=== PATIENT | female | born 1970 | race Caucasian/White ===

== ENCOUNTER 2017-11-02 10:16 | Observation (INO) | payer OTHER ==
[~2017-11-02] VITALS: Ht 167.6 cm; Wt 106.8 kg
[2017-11-02 10:18] VITALS: BP 132/69; PULSE 84; RESP 16; TEMP 99.2; O2SAT 98
[2017-11-02] MEDS ORDERED: ZYPR2.5T2 PO (10:29)
[2017-11-02] MEDS ORDERED: CYMB30CA PO (10:29)
[2017-11-02] MEDS ORDERED: PERC5TAB12 PO (10:29)
[2017-11-02] MEDS ORDERED: CLIN300C5 PO (10:29)
[2017-11-02] MEDS ORDERED: LAMO25 PO (10:29)
[2017-11-02] MEDS ORDERED: DEXAMETHASONE SOD PHOS 4 MG/ML VIAL IV PUSH ONE (11:00)
--- NOTE | 2017-11-02 11:01 | PD ---
HPI Chief Complaint: Oral / Dental Pain or Problem Time Seen by Provider: 10:30 Travel History International Travel<30 days: Yes Contact w/Intl Traveler<30days: Yes Name of Country Traveled to: [facility] Traveled to known affect area: No History of Present Illness HPI This is a 47-year-old female here with dental abscess, neck swelling, fullness in throat. Symptoms began 7 days ago. Worsening over the last 24 hours. She was evaluated in the emergency department in [place] and found to have dental abscess, started on clindamycin and was referred to her dentist. 5 days ago she was evaluated by her dentist and referred to an oral surgeon. She then came to [place] on vacation and her symptoms have worsened. She denies fever chills. The swelling in the neck and fullness in the throat have worsened over the last 24 hours. She is tolerating her secretions, but reports some difficulty swallowing. PFSH Past Medical History Diminished Hearing: No Tetanus Vaccination: Unknown ?: Not Past Surgical History Hysterectomy: Yes Other Surgery: Yes (LEFT HIP) Social History Alcohol Use: Yes (SOC) Tobacco Use: No Substance Use: No Allergies-Medications (Allergen,Severity, Reaction): Coded Allergies: Penicillins (Verified Allergy, Unknown, 11/02/17) Reported Meds & Prescriptions Reported Meds & Active Scripts Active Reported Percocet (Oxycodone-Acetaminophen) 5-325 mg Tab 1 Tab PO Q6H PRN Zyprexa (Olanzapine) 2.5 Mg Tab 2.5 Mg PO HS Cymbalta DR (Duloxetine HCl) 30 Mg Capdr 30 Mg PO DAILY Lamictal (Lamotrigine) 25 Mg Tab 75 Mg PO DAILY Clindamycin (Clindamycin HCl) 300 Mg Cap 300 Mg PO Q6H Review of Systems Except as stated in HPI: all other systems reviewed are Neg General / Constitutional: No: Fever Eyes: No: Visual changes HENT: Positive: Dental Difficulties Cardiovascular: No: Chest Pain or Discomfort Respiratory: No: Shortness of Breath Gastrointestinal: No: Abdominal Pain Genitourinary: No: Dysuria Musculoskeletal: No: Pain Skin: No Rash Physical Exam Narrative GENERAL: Alert and well-appearing 47-year-old female SKIN: Warm and dry. HEAD: Normocephalic. EYES: No injection or drainage. ENT: No swelling to the floor the mouth. Mild pharyngeal erythema right greater than left. Uvula is midline. Airways patent. Normal phonation. No drooling, stridor, trismus. NECK: Supple, trachea midline. Notable swelling, tenderness, and palpable firm mass/fluid collection to the right submandibular region. CARDIOVASCULAR: Regular rate and rhythm RESPIRATORY: Breath sounds equal bilaterally. No accessory muscle use. Data Data Last Documented VS Vital Signs Date Time Temp Pulse Resp B/P (MAP) Pulse Ox O2 Delivery O2 Flow Rate FiO2 11/02/17 10:18 99.2 84 16 132/69 (90) 98 Orders Orders Basic Metabolic Panel (Bmp) (11/02/17 10:50) Complete Blood Count With Diff (11/02/17 10:50) Ct Soft Tiss Neck W Iv Cont (11/02/17 10:50) Iv Access Insert/Monitor (11/02/17 10:50) Dexamethasone Inj (Decadron Inj) (11/02/17 11:00) Iohexol 350 Inj (Omnipaque 350 Inj) (11/02/17 11:15) Acetamin-Hydrocod 325-5 Mg ([place] 5-325 (11/02/17 11:30) Imipenem/Cilastatin Inj (Primaxin Inj) (11/02/17 12:30) Labs Laboratory Tests Test 11/02/17 11:00 White Blood Count 6.7 TH/MM3 Red Blood Count 4.25 MIL/MM3 Hemoglobin 12.0 GM/DL Hematocrit 37.2 % Mean Corpuscular Volume 87.5 FL Mean Corpuscular Hemoglobin 28.3 PG Mean Corpuscular Hemoglobin Concent 32.3 % Red Cell Distribution Width 13.1 % Platelet Count 285 TH/MM3 Mean Platelet Volume 8.0 FL Neutrophils (%) (Auto) 72.5 % Lymphocytes (%) (Auto) 17.5 % Monocytes (%) (Auto) 7.9 % Eosinophils (%) (Auto) 1.5 % Basophils (%) (Auto) 0.6 % Neutrophils # (Auto) 4.9 TH/MM3 Lymphocytes # (Auto) 1.2 TH/MM3 Monocytes # (Auto) 0.5 TH/MM3 Eosinophils # (Auto) 0.1 TH/MM3 Basophils # (Auto) 0.0 TH/MM3 CBC Comment DIFF FINAL Differential Comment Blood Urea Nitrogen 11 MG/DL Creatinine 0.75 MG/DL Random Glucose 85 MG/DL Calcium Level 8.7 MG/DL Sodium Level 139 MEQ/L Potassium Level 4.0 MEQ/L Chloride Level 107 MEQ/L Carbon Dioxide Level 26.7 MEQ/L Anion Gap 5 MEQ/L Estimat Glomerular Filtration Rate 83 ML/MIN MDM Medical Decision Making Medical Screen Exam Complete: Yes Emergency Medical Condition: Yes Differential Diagnosis Dental abscess, submandibular space infection, Nolan angina Narrative Course 47-year-old female here with worsening dental abscess, neck swelling, dysphagia over the last 24 hours. Currently on clindamycin and failing outpatient treatment. CT of neck soft tissue reveal focal low-attenuation involving the right tonsillar pillar concerning for small abscesses. Multiple right-sided lymph nodes which are likely reactive. Her airway is patent. Case was discussed with my attending physician Dr. Palomo who recommends patient be admitted for observation, IV antibiotics. Spoke with Dr. Tyler on-call ENT. He agrees to see the patient in consult. He feels this may not be infectious process but rather inflammatory process or necrotic tissue which needs to be biopsied. Diagnosis Primary Impression: Failure of outpatient treatment Additional Impression: Tonsillar abscess Patient Instructions: General Instructions Departure Forms: Tests/Procedures Carmen Matta November 02, 2017 11:01
[2017-11-02] MEDS ORDERED: IOHEXOL 350 MG/ML 10 ML VIAL (for RAD DIAG) IVCONTRAST ONE (11:15)
[2017-11-02 11:19] LABS: AUTOMATED NEUTROPHIL # 4.9 TH/MM3 (1.8-7.7); BASOPHIL % 0.6 % (0.0-2.0); EOSINOPHIL # 0.1 TH/MM3 (0-0.4); EOSINOPHIL % 1.5 % (0.0-4.0); HEMATOCRIT 37.2 % (35.0-46.0); LYMPH % 17.5 % (9.0-44.0); LYMPHOCYTE # 1.2 TH/MM3 (1.0-4.8); MEAN CELL VOLUME 87.5 FL (80.0-100.0); MEAN CORPUSCULAR HEMOGLOBIN 28.3 PG (27.0-34.0); MEAN CORPUSCULAR HGB CONC 32.3 % (32.0-36.0); MONO % 7.9 % (0.0-8.0); MONOCYTE # 0.5 TH/MM3 (0-0.9); NEUT % 72.5 % (16.0-70.0); PLATELET COUNT 285 TH/MM3 (150-450); RED BLOOD COUNT 4.25 MIL/MM3 (4.00-5.30); RED CELL DISTRIBUTION WIDTH 13.1 % (11.6-17.2); WHITE BLOOD COUNT 6.7 TH/MM3 (4.0-11.0)
[2017-11-02 11:30] LABS: BICARBONATE 26.7 MEQ/L (21.0-32.0); CALCIUM 8.7 MG/DL (8.5-10.1)
[2017-11-02] MEDS ORDERED: ACETAMINOPHEN/HYDROcodone 325 MG/5 MG TAB PO ONE (11:30)
--- NOTE | 2017-11-02 11:32 | RADRPT ---
EXAM DATE/TIME: 11/02/2017 11:01 [facility] COMPARISON: No previous studies available for comparison. INDICATIONS : Right sided oral pain and swelling for one week. IV CONTRAST: 70 cc Omnipaque 350 (iohexol) IV RADIATION DOSE: 13.72 CTDIvol (mGy) MEDICAL HISTORY : None SURGICAL HISTORY : Hysterectomy. ENCOUNTER: Initial ACUITY: 1 week PAIN SCALE: 7/10 LOCATION: Right mouth TECHNIQUE: Volumetric scanning of the neck was performed. Using automated exposure control and adjustment of th e mA and/or kV according to patient size, radiation dose was kept as low as reasonably achievable to obtain optimal diagnostic quality images. DICOM format image data is available electronically for r eview and comparison. FINDINGS: NASOPHARYNX: The nasopharyngeal airway has a normal configuration. No mucosal thickening or mass is seen. OROPHARYNX: The intrinsic muscles of the tongue are symmetric. There is asymmetry of the tonsillar pillars with d ominance on the right tonsillar pillar is a focal low density rim-enhancing area identified on the ri ght measuring 1.1 x 0.8 cm seen on series 400 image 36 concerning for a small focal abscess. LARYNX: The supraglottic, glottic, and infraglottic structures are intact. PARAPHARYNGEAL: The parapharyngeal space is intact. SALIVARY GLANDS: The parotid and submandibular glands are intact. LYMPH NODES: There are multiple right sided enlarged lymph nodes identified within the submandibular region, subme ntal and adjacent to the right jugular digastric chain. There are small bilateral supraclavicular lym ph nodes present. THYROID: Homogeneous enhancement without evidence of nodule. BONES: Unremarkable. CONCLUSION: Focal low attenuation region involving the right tonsillar pillar concerning for a small abscess. Mul tiple right-sided lymph nodes which are likely reactive. Recommend direct endoscopic evaluation to ex clude neoplasm. Lupe Casanova MD on November 02, 2017 at 11:23 Board Certified Radiologist. This report was verified electronically.
[2017-11-02 11:34] LABS: CREATININE 0.75 MG/DL (0.50-1.00)
[2017-11-02] MEDS ORDERED: IMIPENEM/CILASTATIN INJ 250 MG VIAL IV ONE (12:00)
[2017-11-02] MEDS ORDERED: IMIPENEM/CILASTAT 500 MG in NS MINIBAG 100 ML IV ONE (12:30)
[2017-11-02] MEDS ORDERED: PROCHLORPERAZINE 25 MG SUPP RECTAL PRN (13:45)
[2017-11-02] MEDS ORDERED: ACETAMINOPHEN 325 MG TAB PO PRN (13:45)
[2017-11-02] MEDS ORDERED: NALOXONE HCL 0.4 MG/ML AMP IV PUSH PRN (13:45)
[2017-11-02] MEDS ORDERED: methylPREDNISolone SOD SUCC 40 MG/1 ML VIAL IV PUSH ONE (13:45)
[2017-11-02] MEDS ORDERED: SODIUM CHLORIDE 0.9% FLUSH 10 ML FLUSH IV FLUSH PRN (13:45)
[2017-11-02] MEDS ORDERED: MAGNESIUM HYDROXIDE SUSP 30 ML CUP PO PRN (13:45)
[2017-11-02] MEDS ORDERED: LACTATED RINGER'S 1000 ML INJ 1,000 ML IV SCH (14:00)
--- NOTE | 2017-11-02 14:05 | HHI.HP ---
[facility] Non-Staff Admission Diagnosis ? TONSILLAR ABSCESS, DYSPHAGIA, OUTPATIENT TREATMENT FAILURE Diagnoses: Chief Complaint: Right-sided throat pain Travel History International Travel<30 Days: Yes Contact w/Intl Traveler <30 Da: Yes Name of Country Traveled to: [facility] Traveled to Known Affected Are: No History of Present Illness Patient is a 47-year-old female with a recent diagnosis of dental abscess requiring planning for a root canal. She did come on vacation to [place] in the meantime. She noted that the swelling and pain got worse. She was having trouble swallowing. Pain got so severe she came to the hospital for further evaluation. She had been taking clindamycin as an outpatient and noted that symptoms progressed. Here she does have evidence of peritonsillar abscess on imaging. She is not febrile. Patient is recommended for further evaluation IV antibiotics. Pain has improved with Toradol. Patient will be observed overnight. Review of Systems Constitutional: DENIES: Diaphoretic episodes, Fatigue, Fever, Weight gain, Weight loss, Chills, Dizziness, Change in appetite, Night Sweats Endocrine: DENIES: Abnorml menstrual pattern, Heat/cold intolerance, Polydipsia , Polyuria, Polyphagia Eyes: DENIES: Blurred vision, Diplopia, Eye inflammation, Eye pain, Vision loss , Photosensitivity, Double Vision Ears, nose, mouth, throat: COMPLAINS OF: Throat pain, Toothache, Odynophagia, DENIES: Tinnitus, Hearing loss, Vertigo, Nasal discharge, Oral lesions, Hoarseness, Ear Pain, Running Nose, Epistaxis, Sinus Pain Respiratory: DENIES: Apneas, Cough, Snoring, Wheezing, Hemoptysis, Sputum production, Shortness of breath Cardiovascular: DENIES: Chest pain, Palpitations, Syncope, Dyspnea on Exertion , PND, Lower Extremity Edema, Orthopnea, Claudication Gastrointestinal: DENIES: Abdominal pain, Black stools, Bloody stools, Constipation, Diarrhea, Nausea, Vomiting, Difficulty Swallowing, Anorexia Genitourinary: DENIES: Abnormal vaginal bleeding, Dysmenorrhea, Dyspareunia, Sexual dysfunction, Urinary frequency, Urinary incontinence, Urgency, Hematuria , Dysuria, Nocturia, Vaginal discharge Musculoskeletal: DENIES: Joint pain, Muscle aches, Stiffness, Joint Swelling, Back pain, Neck pain Integumentary: DENIES: Abnormal pigmentation, Pruritus, Rash, Nail changes, Breast masses, Breast skin changes, Nipple discharge Hematologic/lymphatic: DENIES: Bruising, Lymphadenopathy Immunologic/allergic: DENIES: Eczema, Urticaria Neurologic: DENIES: Abnormal gait, Headache, Localized weakness, Paresthesias, Seizures, Speech Problems, Tremor, Poor Balance Psychiatric: DENIES: Anxiety, Confusion, Mood changes, Depression, Hallucinations, Agitation, Suicidal Ideation, Homicidal Ideation, Delusions Past Family Social History Past Medical History Depression and anxiety Past Surgical History Left hip surgery Reported Medications Reviewed in the EMR Allergies: Coded Allergies: Penicillins (Verified Allergy, Unknown, 11/02/17) Active Ordered Medications Reviewed in the EMR Family History Mother has diabetes, father's history is unknown Social History No current tobacco or alcohol dependency Visiting from out of town Physical Exam Vital Signs Vital Signs Date Time Temp Pulse Resp B/P (MAP) Pulse Ox O2 Delivery O2 Flow Rate FiO2 11/02/17 10:18 99.2 84 16 132/69 (90) 98 Physical Exam GENERAL: This is a well-nourished, well-developed patient, complaining of right jaw and throat discomfort, muffled voice SKIN: No rashes, ecchymoses or lesions. Cool and dry. HEAD: Atraumatic. Normocephalic. No temporal or scalp tenderness. EYES: Pupils equal round and reactive. Extraocular motions intact. No scleral icterus. No injection or drainage. ENT: Nose without bleeding, purulent drainage or septal hematoma. Throat without erythema, tonsillar hypertrophy or exudate. Uvula midline. Airway patent. NECK:, Tonsillar edema, exudates, and erythema trachea midline. No JVD or lymphadenopathy. Supple, nontender, no meningeal signs. CARDIOVASCULAR: Regular rate and rhythm without murmurs, gallops, or rubs. RESPIRATORY: Clear to auscultation. Breath sounds equal bilaterally. No wheezes , rales, or rhonchi. GASTROINTESTINAL: Abdomen soft, non-tender, nondistended. No hepato-splenomegaly , or palpable masses. No guarding. MUSCULOSKELETAL: Extremities without clubbing, cyanosis, or edema. No joint tenderness, effusion, or edema noted. No calf tenderness. Negative Homans sign bilaterally. NEUROLOGICAL: Awake and alert. Cranial nerves II through XII intact. Motor and sensory grossly within normal limits. Five out of 5 muscle strength in all muscle groups. Normal speech. Laboratory Laboratory Tests Test 11/02/17 11:00 White Blood Count 6.7 Red Blood Count 4.25 Hemoglobin 12.0 Hematocrit 37.2 Mean Corpuscular Volume 87.5 Mean Corpuscular Hemoglobin 28.3 Mean Corpuscular Hemoglobin Concent 32.3 Red Cell Distribution Width 13.1 Platelet Count 285 Mean Platelet Volume 8.0 Neutrophils (%) (Auto) 72.5 Lymphocytes (%) (Auto) 17.5 Monocytes (%) (Auto) 7.9 Eosinophils (%) (Auto) 1.5 Basophils (%) (Auto) 0.6 Neutrophils # (Auto) 4.9 Lymphocytes # (Auto) 1.2 Monocytes # (Auto) 0.5 Eosinophils # (Auto) 0.1 Basophils # (Auto) 0.0 CBC Comment DIFF FINAL Differential Comment Blood Urea Nitrogen 11 Creatinine 0.75 Random Glucose 85 Calcium Level 8.7 Sodium Level 139 Potassium Level 4.0 Chloride Level 107 Carbon Dioxide Level 26.7 Anion Gap 5 Estimat Glomerular Filtration Rate 83 Result Diagram: 11/02/17 1100 11/02/17 1100 Imaging Last Impressions Neck CT 11/02/17 1050 Signed Impressions: Service Date/Time: Thursday, November 02, 2017 11:01 - CONCLUSION: Focal low attenuation region involving the right tonsillar pillar concerning for a small abscess. Multiple right-sided lymph nodes which are likely reactive. Recommend direct endoscopic evaluation to exclude neoplasm. MD Mary Wildei VTE Risk Assessment Caprini VTE Risk Assessment: No/Low Risk (score <= 1) Caprini Risk Assessment Model Point Value = 1 Point Value = 2 Point Value = 3 Point Value = 5 Age 41-60 Minor surgery BMI > 25 kg/m2 Swollen legs Varicose veins or History of unexplained or recurrent spontaneous Oral contraceptives or hormone replacement Sepsis (< 1 month) Serious lung disease, including pneumonia (< 1 month) Abnormal pulmonary function Acute myocardial infarction Congestive heart failure (< 1 month) History of inflammatory bowel disease Medical patient at bed rest Age 61-74 Arthroscopic surgery Major open surgery (> 45 min) Laparoscopic surgery (> 45 min) Malignancy Confined to bed (> 72 hours) Immobilizing plaster cast Central venous access Age >= 75 History of VTE Family history of VTE Factor V Leiden Prothrombin [id number] Lupus anticoagulant Anticardiolipin antibodies Elevated serum homocysteine Heparin-induced thrombocytopenia Other congenital or acquired thrombophilia Stroke (< 1 month) Elective arthroplasty Hip, pelvis, or leg fracture Acute spinal cord injury (< 1 month) Prophylaxis Regimen Total Risk Factor Score Risk Level Prophylaxis Regimen 0-1 Low Early ambulation 2 Moderate Order ONE of the following: *Sequential Compression Device (SCD) *Heparin 5000 units SQ BID 3-4 Higher Order ONE of the following medications: *Heparin 5000 units SQ TID *Enoxaparin/Lovenox 40 mg SQ daily (WT < 150 kg, CrCl > 30 mL/min) *Enoxaparin/Lovenox 30 mg SQ daily (WT < 150 kg, CrCl > 10-29 mL/min) *Enoxaparin/Lovenox 30 mg SQ BID (WT < 150 kg, CrCl > 30 mL/min) AND/OR *Sequential Compression Device (SCD) 5 or more Highest Order ONE of the following medications: *Heparin 5000 units SQ TID (Preferred with Epidurals) *Enoxaparin/Lovenox 40 mg SQ daily (WT < 150 kg, CrCl > 30 mL/min) *Enoxaparin/Lovenox 30 mg SQ daily (WT < 150 kg, CrCl > 10-29 mL/min) *Enoxaparin/Lovenox 30 mg SQ BID (WT < 150 kg, CrCl > 30 mL/min) AND *Sequential Compression Device (SCD) Assessment and Plan Problem List: (1) Tonsillar abscess ICD Code: J36 - Peritonsillar abscess Status: Acute Plan: secondary to dental abscess Continue IV Levaquin for now with IV steroids Patient failed outpatient therapy on clindamycin Soft diet If no improvement will consult ENT Code Status Full code Discussed Condition With Patient, family, ER provider Brittany Beltran MD November 02, 2017 14:05
[2017-11-02 15:00] VITALS: BP 136/71; PULSE 69; RESP 16; O2SAT 100
[2017-11-02] MEDS ORDERED: CLINDAMYCIN 600 MG/NS PREMIX 50 ML IV SCH (15:00)
[2017-11-02] MEDS ORDERED: LEVOFLOXACIN 750 MG PREMIX INJ 150 ML IV SCH (15:00)
[2017-11-02] MEDS: SODIUM CHLORIDE 0.9% FLUSH 10 ML FLUSH IV FLUSH SCH (19:56)
[2017-11-02 20:00] VITALS: BP 134/73; PULSE 78; RESP 20; TEMP 99.6; O2SAT 96
[2017-11-02] MEDS ORDERED: ACETAMINOPHEN/HYDROcodone 325 MG/5 MG TAB PO PRN (20:30)
[2017-11-02] MEDS ORDERED: MELATONIN 5 MG TAB PO ONE (21:00)
[2017-11-03] VITALS: BP 117/59; PULSE 72; RESP 20; TEMP 97.2; O2SAT 96
[2017-11-03 07:55] LABS: AUTOMATED NEUTROPHIL # 7.9 TH/MM3 (1.8-7.7); BASOPHIL # 0.1 TH/MM3 (0-0.2); BASOPHIL % 0.5 % (0.0-2.0); EOSINOPHIL % 0.3 % (0.0-4.0); HEMATOCRIT 34.4 % (35.0-46.0); HEMOGLOBIN 11.9 GM/DL (11.6-15.3); LYMPH % 16.6 % (9.0-44.0); LYMPHOCYTE # 1.7 TH/MM3 (1.0-4.8); MEAN CELL VOLUME 87.3 FL (80.0-100.0); MEAN CORPUSCULAR HEMOGLOBIN 30.3 PG (27.0-34.0); MEAN CORPUSCULAR HGB CONC 34.7 % (32.0-36.0); MEAN PLATELET VOLUME 9.2 FL (7.0-11.0); MONO % 6.5 % (0.0-8.0); MONOCYTE # 0.7 TH/MM3 (0-0.9); NEUT % 76.1 % (16.0-70.0); PLATELET COUNT 320 TH/MM3 (150-450); RED BLOOD COUNT 3.94 MIL/MM3 (4.00-5.30); RED CELL DISTRIBUTION WIDTH 13.1 % (11.6-17.2); WHITE BLOOD COUNT 10.4 TH/MM3 (4.0-11.0)
[2017-11-03 07:59] LABS: CALCIUM 8.8 MG/DL (8.5-10.1)
[2017-11-03 08:00] VITALS: BP 113/57; PULSE 69; RESP 20; TEMP 97; O2SAT 97
[2017-11-03 08:00] LABS: BICARBONATE 25.4 MEQ/L (21.0-32.0)
[2017-11-03 08:03] LABS: CREATININE 0.59 MG/DL (0.50-1.00)
--- NOTE | 2017-11-03 08:32 | HHI.PR ---
Subjective Remarks Patient seen and evaluated in follow-up for probable peritonsillar abscess. Overall improved. Swallowing better. Reports improvement with steroids and pain medication. Voice is stronger Objective Vitals Vital Signs Date Time Temp Pulse Resp B/P (MAP) Pulse Ox O2 Delivery O2 Flow Rate FiO2 11/03/17 00:00 97.2 72 20 117/59 (78) 96 11/02/17 20:00 99.6 78 20 134/73 (93) 96 11/02/17 15:32 11/02/17 15:00 69 16 136/71 (92) 100 Room Air 11/02/17 10:18 99.2 84 16 132/69 (90) 98 I/O 11/02/17 11/02/17 11/02/17 11/03/17 11/03/17 11/03/17 07:00 15:00 23:00 07:00 15:00 23:00 Intake Total 100 ml 630 ml 480 ml Output Total 200 ml Balance 100 ml 430 ml 480 ml Intake Oral 480 ml 480 ml IV Total 100 ml 150 ml Output Urine Total 200 ml # Voids 3 Result Diagram: 11/03/17 0623 11/03/17 0623 Objective Remarks GENERAL: This is a well-nourished, well-developed patient, some swelling in the neck but improved from previous exam CARDIOVASCULAR: Regular rate and rhythm without murmurs, gallops, or rubs. RESPIRATORY: Clear to auscultation. Breath sounds equal bilaterally. No wheezes , rales, or rhonchi. GASTROINTESTINAL: Abdomen soft, non-tender, nondistended. Normal active bowel sounds MUSCULOSKELETAL: Extremities without clubbing, cyanosis, or edema. NEURO: Alert & Oriented x4 to person, place, time, situation. Moves all ext x4 A/P Problem List: (1) Tonsillar abscess ICD Code: J36 - Peritonsillar abscess Status: Acute Plan: secondary to dental abscess Continue IV Levaquin for now with IV steroids Patient failed outpatient therapy on clindamycin Appears to have improved overnight Assessment and Plan Likely discharge home this afternoon Brittany Beltran MD November 03, 2017 08:32
[2017-11-03] MEDS ORDERED: LEVA500T33 PO (08:34)
[2017-11-03] MEDS ORDERED: PRED5PAK PO (08:34)
--- NOTE | 2017-11-03 08:35 | HHI.DCPOC ---
Discharge Care Plan Diagnosis: (1) Tonsillar abscess (2) Dental abscess Your Health Problems Are: Difficulty to Swallow Goals to Promote Your Health * To prevent worsening of your condition and complications * To maintain your health at the optimal level Directions to Meet Your Goals Take your medications as prescribed Follow your dietary instruction Follow activity as directed Keep your appointments as scheduled Take your immunizations and boosters as scheduled If your symptoms worsen call your PCP, if no PCP go to Urgent Care Center or Emergency Room Smoking is Dangerous to Your Health. Avoid second hand smoke Call the 24-hour hour crisis hotline for domestic abuse at Brittany Beltran MD November 03, 2017 08:35
[2017-11-03] MEDS ORDERED: KETOROLAC TROMETHAMINE 30 MG/ML (IVP) VIAL IV PUSH ONE (09:00)
[2017-11-03] MEDS ORDERED: DEXAMETHASONE SOD PHOS 4 MG/ML VIAL IV PUSH ONE (09:00)
[2017-11-03] MEDS: SODIUM CHLORIDE 0.9% FLUSH 10 ML FLUSH IV FLUSH SCH (09:09)
== END 2017-11-03 10:29 | disposition home or self-care (01) ==
LOC: PHEFT 10:16 → PHEDA 13:12 → PH3B 15:47
PROVIDERS: ADMIT Hospitalist; ATTEND Hospitalist
DX: J36 Peritonsillar abscess (principal); K04.7 Periapical abscess without sinus
CPT/HCPCS: 70491; 80048; 85025; 96361; 96374; 96375; 96376; 99285; G0378; J0743; J1100; J1885; J1956; J2920; J7120; Q9967